=== PATIENT | female | born 1960 | race Caucasian/White ===

== ENCOUNTER 2018-06-08 08:56 | Outpatient (CLI) | payer BC | END 2018-06-08 08:57 | disposition home or self-care (01) | LOC: BICMAMMO 08:56 | PROVIDERS: ATTEND Physician Assistant | DX: Z12.31 Encounter for screening mammogram for malignant neoplasm of breast (principal); Z13.820 Encounter for screening for osteoporosis; M85.88 Other specified disorders of bone density and structure, other site; M81.0 Age-related osteoporosis without current pathological fracture; Z98.82 Breast implant status | CPT/HCPCS: 77063; 77067; 77080 ==

== ENCOUNTER 2018-12-17 08:12 | Emergency (ER) | payer BC ==
[2018-12-17] MEDS ORDERED: Ondansetron PF 4 MG/2 ML Vial ONE (08:32)
[2018-12-17] MEDS ORDERED: Dicyclomine 20 MG TAB ONE (08:32)
[2018-12-17 09:01] LABS: #Lymphocytes 0.6 thou/uL (1.20-3.40); #Monocytes 0.3 thou/uL (0.11-0.59); #Neutrophils 6.5 thou/uL (1.40-6.50); %Basophils 0.2 % (0.0-1.0); %Eosinophils 0.6 % (0.0-10.0); %Lymphocytes 8.5 % (21.0-51.0); %Monocytes 3.4 % (0.0-10.0); %Neutrophils 87.3 % (42.0-75.0); Hemoglobin 14.9 g/dL (12.0-16.0); Mean Corpuscular HGB CONC 32.7 g/dL (32.0-36.0); Mean Corpuscular Hemoglobin 32.7 pg (27.0-31.0); Mean Corpuscular Volume 99.9 fL (78.0-98.0); Mean Platelet Volume 9.1 fL (7.4-10.4); Platelet Count 185 thou/uL (130-400); RBC Distribution Width 11.6 % (11.5-14.5); Red Blood Cell (RBC) Count 4.57 mill/uL (4.20-5.40); White Blood Cell (WBC) Count 7.4 thou/uL (4.8-10.8)
[2018-12-17 09:06] LABS: Bilirubin Moderate (Negative); Blood, Urine Moderate (Negative); Clarity CLEAR (Clear); Glucose, Urine (Dipstick) Negative (Negative); Leukocyte Negative (Negative); Nitrite Negative (Negative); Protein, Urine (Dipstick) Negative (Neg-Trace); Specific Gravity, Urine 1.025 (1.005-1.030)
[2018-12-17 09:07] LABS: Other Microscopic Description Less than 2 mL rec'd
[2018-12-17 09:18] LABS: ALT (SGPT) 23 U/L (8-55); AST (SGOT) 23 U/L (5-34); Albumin 4.5 g/dL (3.5-5.0); Alkaline Phosphatase 66 U/L (40-150); Anion Gap 15 mmol/L (10-20); BUN (Urea Nitrogen) 16 mg/dL (9.8-20.1); Calc. Creatinine Clearance 0 mL/min (70-130); Calcium 9.4 mg/dL (7.8-10.44); Carbon Dioxide 21 mmol/L (22-29); Chloride 104 mmol/L (98-107); Estimated GFR-MDRD 68; Globulin 2.9 g/dL (2.4-3.5); Glucose 88 mg/dL (70-105); Potassium 3.8 mmol/L (3.5-5.1); Protein, Total 7.4 g/dL (6.0-8.3); Sodium 136 mmol/L (136-145)
--- NOTE | 2018-12-17 12:05 | RAD ---
CHEST 1 VIEW: Date: 12/17/18 HISTORY: Hematemesis. COMPARISON: 06/04/06. FINDINGS: The cardiac silhouette and pulmonary vasculature are unremarkable. Mediastinum is midline, allowing f or slight leftward curvature of the upper thoracic spine. No confluent air space consolidation or santa dence of pneumothorax. Diffuse mild density over each inferior hemithorax correlates with breast impl ants. IMPRESSION: No active cardiopulmonary abnormalities are demonstrated. POS: AMANDA
== END 2018-12-17 11:45 | disposition home or self-care (01) ==
LOC: ERS 08:12
DX: R11.2 Nausea with vomiting, unspecified (principal); K06.8 Other specified disorders of gingiva and edentulous alveolar ridge; I10 Essential (primary) hypertension; F17.210 Nicotine dependence, cigarettes, uncomplicated; Z79.899 Other long term (current) drug therapy
CPT/HCPCS: 71045; 80053; 81003; 81015; 84484; 85025; 87086; 87804; 93005; 96361; 96374; J2405

== ENCOUNTER 2019-08-10 09:42 | Outpatient (CLI) | payer BC ==
--- NOTE | 2019-08-10 12:09 | RAD ---
RIGHT HIP 2 VIEWS: Date: 08/10/19 HISTORY: Right hip pain. FINDINGS/IMPRESSION: Degenerative changes are seen with spurring from the femoral head and medial joint narrowing. No acut e fracture identified. POS: TPC
--- NOTE | 2019-08-10 12:10 | RAD ---
LEFT HIP 2 VIEWS: Date: 08/10/19 HISTORY: Hip pain. FINDINGS: Degenerative changes are seen. Spurring from the femoral head. No fracture or acute abnormality. IMPRESSION: Mild to moderate degenerative changes. POS: [facility]
--- NOTE | 2019-08-10 12:13 | RAD ---
LUMBAR SPINE 2 VIEWS: Date: 08/10/19 HISTORY: Back pain. Lumbago with sciatica. FINDINGS: The lumbar vertebra maintain normal height and alignment. There is loss of disc space with degenerati ve disc and end plate changes at L5-S1. Mild degenerative osteophytes from the lumbar vertebra. Facet hypertrophy. No evidence of spondylolisthesis. IMPRESSION: There are moderate degenerative changes, most prominent at the L5-S1 level. POS: TPC
== END 2019-08-10 09:43 | disposition home or self-care (01) ==
LOC: BICRAD 09:42
PROVIDERS: ATTEND Family Medicine
DX: M25.552 Pain in left hip (principal); M25.551 Pain in right hip; M54.41 Lumbago with sciatica, right side; M47.816 Spondylosis without myelopathy or radiculopathy, lumbar region; M47.817 Spondylosis without myelopathy or radiculopathy, lumbosacral region; M16.0 Bilateral primary osteoarthritis of hip; M76.9 Unspecified enthesopathy, lower limb, excluding foot; M25.851 Other specified joint disorders, right hip
CPT/HCPCS: 36415; 72100; 80053; 80061; 85025

== ENCOUNTER 2020-09-10 08:49 | Outpatient (CLI) | payer BC ==
--- NOTE | 2020-09-10 09:57 | MMO ---
Bilateral MAMMO Bilat Screen [facility]. CLINICAL HISTORY: Patient is 60 years old and is seen for screening. The patient has no family history of breast cancer. The patient has no personal history of cancer. The patient has a history of bilateral Implants in 2009. VIEWS: The views performed were: bilateral craniocaudal; bilateral mediolateral oblique; and bilateral Implant displaced with tomosynthesis. FILMS COMPARED: The present examination has been compared to prior imaging studies performed at [facility] on 07/01/2010, 07/16/2016 and 06/08/2018, and at [facility] on 09/25/2005. This study has been interpreted with the assistance of computer-aided detection. MAMMOGRAM FINDINGS: There are scattered fibroglandular densities. There are no suspicious masses, suspicious calcifications, or new areas of architectural distortion. Normal implants are present. IMPRESSION: THERE IS NO MAMMOGRAPHIC EVIDENCE OF MALIGNANCY. A ROUTINE FOLLOW-UP MAMMOGRAM IN 1 YEAR IS RECOMMENDED. THE RESULTS OF THIS EXAM WERE SENT TO THE PATIENT. ACR BI-RADS Category 1 - Negative MAMMOGRAPHY NOTE: 1. A negative mammogram report should not delay a biopsy if a dominant of clinically suspicious mass is present. 2. Approximately 10% to 15% of breast cancers are not detected by mammography. 3. Adenosis and dense breasts may obscure an underlying neoplasm. Reported by: TIFFANI CURRAN MD Electonically Signed: [id number]
--- NOTE | 2020-09-10 10:06 | CT ---
EXAM: CT chest without contrast per low-dose cancer screening protocol HISTORY: History of smoking and nicotine dependence COMPARISON: None TECHNIQUE: Multiple contiguous axial images were obtained in a CT of the chest without contrast per l ow-dose cancer screening protocol. Sagittal and coronal reformats were performed. FINDINGS: Pulmonary nodules: Emphysematous changes are seen in the lung apices. Tiny calcified granulomas are s een in the right lower lobe. A calcified granuloma is seen in the left lower lobe. No suspicious pulmonary nodules are seen. No focal infiltrates are seen. Pleural space: No pneumothorax or pleural effusion are seen. Heart: The heart is normal in size. Calcifications are seen in the coronary arteries. Mediastinum: No hilar or mediastinal lymphadenopathy appreciated on this limited noncontrast examinat ion. Bones: Degenerative changes in the spine. Chest wall soft tissues: Bilateral breast implants. Visualized subdiaphragmatic structures: Scattered diverticula in the colon.. IMPRESSION: 1. Lung RADS category 2-benign findings. 2. Lung RADS category S-coronary artery calcifications 3. Diverticulosis
--- NOTE | 2020-09-11 07:07 | BD ---
EXAM: Bone densitometry using DEXA HISTORY: 60 yo female. Screening for postmenopausal osteoporosis FINDINGS: L1--bone mineral density 0.724 g/sq cm; T score -2.4 ; Z score -1.2 L2--bone mineral density 0.913 g/sq cm; T score -1.0 ; Z score 0.3 L3--bone mineral density 0.932 g/sq cm; T score -1.4 ; Z score 0.0 L4--bone mineral density 0.970 g/sq cm; T score -0.8 ; Z score 0.6 Total L1-L4--bone mineral density 0.888 g/sq cm; T score -1.4 ; Z score -0.1 Left femoral neck--bone mineral density0.587; T score -2.4 ; Z score -1.1 Total proximal left femur--bone mineral density 0.766; T score -1.4 ; Z score -0.6 IMPRESSION: Osteopenia
== END 2020-09-10 08:50 | disposition home or self-care (01) ==
LOC: BICMAMMO 08:49
PROVIDERS: ATTEND Family Medicine
DX: Z12.31 Encounter for screening mammogram for malignant neoplasm of breast (principal); Z12.2 Encounter for screening for malignant neoplasm of respiratory organs; M81.0 Age-related osteoporosis without current pathological fracture; F17.210 Nicotine dependence, cigarettes, uncomplicated; I25.10 Atherosclerotic heart disease of native coronary artery without angina pectoris; K57.30 Diverticulosis of large intestine without perforation or abscess without bleeding; M85.89 Other specified disorders of bone density and structure, multiple sites; Z98.82 Breast implant status
CPT/HCPCS: 77063; 77067; 77080; G0297

== ENCOUNTER 2023-04-30 09:24 | Outpatient (CLI) | payer BC | END 2023-04-30 09:25 | disposition home or self-care (01) | LOC: BICMAMMO 09:24 | PROVIDERS: ATTEND Family Medicine | DX: Z12.31 Encounter for screening mammogram for malignant neoplasm of breast (principal); M85.80 Other specified disorders of bone density and structure, unspecified site; Z98.82 Breast implant status; Z78.0 Asymptomatic menopausal state | CPT/HCPCS: 77063; 77067; 77080 ==

== ENCOUNTER 2023-09-24 15:11 | Outpatient (CLI) | payer BC | END 2023-09-24 15:12 | disposition home or self-care (01) | LOC: BICRAD 15:11 | PROVIDERS: ATTEND Family Medicine | DX: M25.512 Pain in left shoulder (principal) ==